=== PATIENT | male | born 1950 | race Caucasian/White ===

== ENCOUNTER 2022-03-26 09:53 | Day surgery (SDC) | payer OTHER ==
[~2022-03-26] VITALS: Ht 177.8 cm; Wt 94.0 kg
[~2022-03-26 09:53] MED LIST: CHEL50TA2 PO; CVS1CAP2 PO; DIGECAP7 PO; OMEG10002 PO; SYNT150T PO; VITA100093 PO; ceFAZolin SOD 2 GM in IV 1 EA IV ONE
[2022-03-26] MEDS ORDERED: LR 1,000 ML IV SCH ×2 (11:20→14:30)
[2022-03-26] MEDS ORDERED: propofoL 200 MG/20 ML VIAL As Ordered ONE (12:24)
[2022-03-26] MEDS ORDERED: LIDOCAINE 2% 100MG/5ML SDV (FOR ANES.) As Ordered ONE (12:24)
[2022-03-26] MEDS ORDERED: MIDAZOLAM INJ 2MG/2ML VIAL (J2250 PER 1MG) As Ordered ONE (12:25)
[2022-03-26] MEDS ORDERED: fentaNYL 100 MCG/2 ML INJECTION As Ordered ONE (12:25)
[2022-03-26] MEDS ORDERED: LIDOCAINE 5% OINT 30GM TUBE As Ordered ONE (12:30)
[2022-03-26] MEDS ORDERED: SEVOFLURANE INHAL SOLN 250 ML BTL As Ordered ONE (12:43)
[2022-03-26] MEDS ORDERED: BACITRACIN OINTMENT 30GM TUBE As Ordered ONE (13:40)
[2022-03-26] MEDS ORDERED: ACETAMINOPHEN 1000MG 100ML IV BTL (OFIRMEV) (J0131 PER 10MG) As Ordered ONE (13:43)
[2022-03-26] MEDS ORDERED: oxyCODONE 5MG TAB PO PRN (14:30)
[2022-03-26] MEDS ORDERED: HYDROMORPHONE HCL 0.5 MG/ 0.5 ML SYRINGE (J1170 PER 1) IV PRN (14:30)
[2022-03-26] MEDS ORDERED: fentaNYL 100 MCG/2 ML INJECTION IV PRN (14:30)
[2022-03-26] MEDS ORDERED: ONDANSETRON 4MG 2ML VIAL IV PRN (14:30)
[2022-03-26] MEDS ORDERED: OXYC1TAB23 PO (14:50)
[2022-03-26] MEDS ORDERED: PERCOCET 5MG/325MG TAB PO PRN (14:55)
[2022-03-26 16:30] VITALS: BP 133/79
== END 2022-03-26 16:46 | disposition home or self-care (01) ==
LOC: M SDC 09:53
PROVIDERS: ATTEND Urology
DX: N47.1 Phimosis (principal); E78.5 Hyperlipidemia, unspecified; I73.9 Peripheral vascular disease, unspecified; E03.9 Hypothyroidism, unspecified; Z85.46 Personal history of malignant neoplasm of prostate; Z79.899 Other long term (current) drug therapy
CPT/HCPCS: 54161; 88304; J0131; J0690; J2250; J3010

== ENCOUNTER → 2023-08-30 | Outpatient (REF) | payer OTHER ==
[~2023-08-30] MED LIST changes: +OXYC1TAB23 PO; -ceFAZolin SOD 2 GM in IV 1 EA IV ONE
[2023-08-30 12:39] LABS: APPEARANCE, URINE CLEAR (CLEAR); BACTERIA, URINE AUTO NEGATIVE (NEGATIVE); BILIRUBIN, URINE AUTO NEGATIVE (NEGATIVE); BLOOD, URINE BLOOD NEGATIVE (NEGATIVE); COLOR, URINE YELLOW (YELLOW); GLUCOSE, URINE (UA) AUTO NEGATIVE (NEGATIVE); KETONE, URINE AUTO NEGATIVE (NEGATIVE); LEUKOCYTE ESTERASE, URINE AUTO NEGATIVE (NEGATIVE); NITRITE, URINE AUTO NEGATIVE (NEGATIVE); PROTEIN, URINE AUTO NEGATIVE (NEGATIVE); RBC, URINE AUTO 0 /HPF (0-3); SPECIFIC GRAVITY URINE AUTO 1.016 (1.002-1.035); SQUAMOUS EPITHELIAL CELL UR AU 2 /HPF (0-6); UROBILINOGEN, URINE AUTO 0.2 mg/dL (0.0-2.0); WBC, URINE AUTO 1 /HPF (0-3)
== END ==
LOC: M SMT 10:11
PROVIDERS: ATTEND Physician Assistant
DX: R31.0 Gross hematuria (principal)